=== PATIENT | male | born 1980 | race Hispanic/Latino ===

== ENCOUNTER 2022-08-31 15:22 | Emergency (ER) | payer SELFPAY ==
[2022-08-31 17:51] LABS: Absolute Lymphocytes (CBC) 3.1 K/uL (0.7-4.9); Hematocrit 51.6 % (39.6-49.0); Lymphocytes % 26.3 % (15.3-44.8); MPV 8.2 fL (7.6-11.3); Protime INR 1.13; RBC Red Blood Cell Count 5.67 M/uL (4.33-5.43)
[2022-08-31] MEDS ORDERED: FAMOTIDINE 20 MG/2 ML VIAL IV ONE (17:53)
[2022-08-31] MEDS ORDERED: NA CHLORIDE 0.9% 1,000 ML ONE (17:53)
[2022-08-31] MEDS ORDERED: ONDANSETRON 4 MG/2 ML VIAL ONE (17:53)
[2022-08-31] MEDS ORDERED: MAGNES/ALUMIN/SIMET 30ML UCUP ONE (18:14)
[2022-08-31 18:17] LABS: Specific Gravity 1.018 (1.005-1.030); Urine Bilirubin NEGATIVE (Negative); Urine Blood Negative (Negative); Urine Clarity Clear (Clear); Urine Color Light-Yellow (Yellow); Urine Glucose NEGATIVE (Negative); Urine Protein NEGATIVE (Negative); Urine Urobilinogen Normal (Normal); Urine pH 5.5 (5.0-7.0)
[2022-08-31 18:28] LABS: ALT/SGPT 39 U/L (16-61); AST/SGOT 19 U/L (15-37); Albumin 3.8 g/dL (3.4-5.0); Alkaline Phosphatase 175 U/L (45-117); BUN Blood Urea Nitrogen 10 mg/dL (7-18); Bicarbonate 24 mEq/L (21-32); Bilirubin Direct 0.3 mg/dL (0-0.2); Bilirubin Indirect, Calculated 0.8 mg/dL (0.2-0.8); Bilirubin Total 1.1 mg/dL (0.2-1.0); Glomerular Filtration Rate 91 ml/min (=/>90); Glucose Level 104 mg/dL (74-106); Lipase 53 U/L (13-75); Magnesium 2.2 mg/dL (1.6-2.4); NT PRO-BNP 24 pg/mL (<125); Potassium 3.6 mEq/L (3.5-5.1); Protein, Total 7.8 g/dL (6.4-8.2); Sodium Level 138 mEq/L (136-145)
[2022-08-31 18:29] LABS: Troponin High Sensitivity < 3.0 pg/mL (<58.9)
[2022-08-31] MEDS ORDERED: PANTOPRAZOLE 40 MG INJ ONE (18:58)
--- NOTE | 2022-08-31 19:00 | RAD REPORT ---
EXAM DESCRIPTION: Nicholas Single View08/31/2022 5:53 pm CLINICAL HISTORY: Abdominal pain COMPARISON: none FINDINGS: The lungs appear clear of acute infiltrate. The heart is normal size IMPRESSION: No acute abnormalities displayed
--- NOTE | 2022-08-31 19:03 | ER ---
Nurse's Notes [facility] Name: Josué Flores Jr Age: 42 yrs Sex: Male : 1980 Arrival Date: 08/31/2022 Time: 15:22 Bed 13 Private MD: Diagnosis: Dysphagia;Dysphagia, unspecified;Gastro-esophageal reflux disease with esophagitis Presentation: 08/31 15:36 Chief complaint: Patient states: "For the past 3-4 months, I've had heartburn and acid mb9 reflux real bad. The past few weeks when eat I fell like it gets stuck in my throat and feel pressure in my stomach and gas built up. Burping helps relieve that pressure. I have diarrhea and today feel lightheaded and nauseous". Coronavirus screen: At this time, the client does not indicate any symptoms associated with coronavirus-19. Ebola Screen: No symptoms or risks identified at this time. Initial Sepsis Screen: Does the patient meet any 2 criteria? No. Patient's initial sepsis screen is negative. Does the patient have a suspected source of infection? No. Patient's initial sepsis screen is negative. Risk Assessment: Do you want to hurt yourself or someone else? Patient reports no desire to harm self or others. Onset of symptoms was 2022. 15:36 Method Of Arrival: Ambulatory mb9 15:36 Acuity: HERBERTH 3 mb9 Triage Assessment: 15:39 General: Appears in no apparent distress. Behavior is calm, cooperative. Pain: mb9 Complains of pain in abdomen. EENT: No signs and/or symptoms were reported regarding the EENT system. Neuro: Enrique Agitation-Sedation Scale (RASS): 0 - Alert and Calm Level of Consciousness is awake, alert, obeys commands, Oriented to person, place, time, situation, Appropriate for age. Cardiovascular: Patient's skin is warm and dry. Respiratory: Airway is patent Respiratory effort is even, unlabored, Respiratory pattern is regular, symmetrical. GI: Abdomen is flat, non-distended, Bowel sounds present X 4 quads. Abd is soft and non tender X 4 quads. Reports diarrhea, nausea. : No signs and/or symptoms were reported regarding the genitourinary system. Derm: Skin is pink, warm \\T\\ dry. Musculoskeletal: Range of motion: intact in all extremities. Historical: - Allergies: 15:38 No Known Allergies; mb9 - Home Meds: 15:38 None [Active]; mb9 - PMHx: 15:38 None; mb9 - PSHx: 15:38 None; mb9 - Immunization history:: Adult Immunizations up to date. - Social history:: Smoking status: Patient/guardian denies using tobacco. Screenin:00 [facility] ED Fall Risk Assessment (Adult) History of falling in the last 3 months, db including since admission No falls in past 3 months (0 pts) Confusion or Disorientation No (0 pts) Intoxicated or Sedated No (0 pts) Impaired Gait No (0 pts) Mobility Assist Device Used No (0 pt) Altered Elimination No (0 pt) Score/Fall Risk Level 0 - 2 = Low Risk Oriented to surroundings, Maintained a safe environment. Abuse screen: Denies threats or abuse. Denies injuries from another. Nutritional screening: No deficits noted. Tuberculosis screening: No symptoms or risk factors identified. Assessment: 15:40 Reassessment: see triage assessment. 9 17:13 Reassessment: No changes from previously documented assessment. Patient and/or family ll1 updated on plan of care and expected duration. Pain level reassessed. 17:59 Reassessment: Patient appears in no apparent distress at this time. Patient and/or db family updated on plan of care and expected duration. Pain level reassessed. Patient is alert, oriented x 3, equal unlabored respirations, skin warm/dry/pink. General: Appears in no apparent distress. comfortable, Behavior is calm, cooperative. Pain: Complains of pain in EPIGASTRIC. Neuro: No deficits noted. Level of Consciousness is awake, alert, obeys commands, Oriented to person, place, time, situation. Respiratory: Airway is patent Respiratory effort is even, unlabored, Respiratory pattern is regular, symmetrical. 18:55 Reassessment: Patient appears in no apparent distress at this time. Patient and/or db family updated on plan of care and expected duration. Pain level reassessed. Patient is alert, oriented x 3, equal unlabored respirations, skin warm/dry/pink. Reassessment: Patient states feeling better. Patient states symptoms have improved. General: Appears in no apparent distress. comfortable, Behavior is calm, cooperative. Vital Signs: 15:36 BP 128 / 89; Pulse 89; Resp 18; Temp 97.8; Pulse Ox 100% on R/A; Weight 72.57 kg; mb9 Height 5 ft. 7 in. ; Pain 0/10; 17:49 BP 135 / 91; Pulse 72; Resp 16; Pulse Ox 100% on R/A; db 19:00 BP 127 / 80; Pulse 76; Resp 16; Pulse Ox 100% on R/A; db 15:36 Body Mass Index 25.06 (72.57 kg, 170.18 cm) mb9 15:36 Pain Scale: Adult mb9 ED Course: 15:25 Patient arrived in ED. am2 15:28 Cal Gallegos MD is Attending Physician. daniela 15:38 Triage completed. mb9 15:38 Arm band placed on. mb9 17:13 Patient placed in an exam room, on a stretcher. ll1 17:30 Joanie Valentino, YENI is Primary Nurse. db 17:40 Inserted saline lock: 20 gauge in right antecubital area, using aseptic technique. db Blood collected. 17:51 EKG done, by ED staff, reviewed by Cal Gallegos MD. em1 17:55 XRAY Chest (1 view) In Process Unspecified. EDMS 19:03 Namrata Malin MD is Referral Physician. daniela 19:24 Patient has correct armband on for positive identification. Provided Education on: db DISCHARGE. 19:24 No provider procedures requiring assistance completed. IV discontinued, intact, db bleeding controlled, No redness/swelling at site. Administered Medications: 17:50 Drug: NS 0.9% IV 1000 ml Route: IV; Rate: 1 bolus; Site: right antecubital; db 18:55 Follow up: Response: No adverse reaction; IV Status: Completed infusion; IV Intake: db 1000ml 17:50 Drug: Ondansetron IVP 8 mg Route: IVP; Site: right antecubital; db 19:25 Follow up: Response: No adverse reaction db 17:50 Drug: Famotidine IVP 20 mg Route: IVP; Site: right antecubital; db 19:25 Follow up: Response: No adverse reaction db 18:05 Drug: GI Cocktail without - (Maalox PO Suspension 30 ml, Lidocaine Mucous db Membrane Liquid 2 % 15 ml) Route: PO; 19:26 Follow up: Response: No adverse reaction db 19:07 Drug: Pantoprazole IVP 40 mg Route: IVP; Site: right antecubital; db 19:13 Follow up: Response: No adverse reaction db Medication: 19:24 VIS not applicable for this client. db Intake: 18:55 IV: 1000ml; Total: 1000ml. db Outcome: 19:03 Discharge ordered by . daniela 19:24 Discharged to home ambulatory, with family. db 19:24 Condition: stable 19:24 Discharge instructions given to patient, Instructed on discharge instructions, follow up and referral plans. Prescriptions given X 3. 19:26 Patient left the ED. db Signatures: Dispatcher [employer] EDMS Cal Gallegos MD MD cha Martinez, Eric em1 Lizbeth Prabhakar Lynsay, RN RN ll1 Joanie Valentino RN RN Agustina Morocho RN RN mb9
--- NOTE | 2022-08-31 19:03 | EDPHYS ---
Physician Documentation [facility] Name: Josué Flores Jr Age: 42 yrs Sex: Male : 1980 Arrival Date: 08/31/2022 Time: 15:22 Bed 13 Private MD: ED Physician Cal Gallegos HPI: 08/31 17:52 This 42 yrs old Male presents to ER via Ambulatory with complaints of daniela Abdominal Pain, Nausea, r/o obstruction. 17:52 The patient presents to the emergency department with nausea, that is mild. Onset: The daniela symptoms/episode began/occurred 3 month(s) ago. Possible causes: unknown. The symptoms are aggravated by food , The symptoms are alleviated by nothing. Associated signs and symptoms: The patient has no apparent associated signs or symptoms. Severity of symptoms: At their worst the symptoms were mild in the emergency department the symptoms are unchanged. Historical: - Allergies: 15:38 No Known Allergies; mb9 - Home Meds: 15:38 None [Active]; mb9 - PMHx: 15:38 None; mb9 - PSHx: 15:38 None; mb9 - Immunization history:: Adult Immunizations up to date. - Social history:: Smoking status: Patient/guardian denies using tobacco. ROS: 17:53 Constitutional: Negative for fever, chills, and weight loss, Eyes: Negative for injury, daniela pain, redness, and discharge, Neck: Negative for injury, pain, and swelling, Cardiovascular: Negative for chest pain, palpitations, and edema, Respiratory: Negative for shortness of breath, cough, wheezing, and pleuritic chest pain, Abdomen/GI: Negative for abdominal pain, nausea, vomiting, diarrhea, and constipation, Back: Negative for injury and pain, : Negative for injury, bleeding, discharge, and swelling, MS/Extremity: Negative for injury and deformity, Skin: Negative for injury, rash, and discoloration, Neuro: Negative for headache, weakness, numbness, tingling, and seizure, Psych: Negative for depression, anxiety, suicide ideation, homicidal ideation, and hallucinations, Allergy/Immunology: Negative for hives, rash, and allergies, Endocrine: Negative for neck swelling, polydipsia, polyuria, polyphagia, and marked weight changes, Hematologic/Lymphatic: Negative for swollen nodes, abnormal bleeding, and unusual bruising. 17:53 ENT: Positive for difficulty swallowing. Exam: 17:53 Constitutional: This is a well developed, well nourished patient who is awake, alert, daniela and in no acute distress. Head/Face: Normocephalic, atraumatic. Eyes: Pupils equal round and reactive to light, extra-ocular motions intact. Lids and lashes normal. Conjunctiva and sclera are non-icteric and not injected. Cornea within normal limits. Periorbital areas with no swelling, redness, or edema. ENT: Nares patent. No nasal discharge, no septal abnormalities noted. Tympanic membranes are normal and external auditory canals are clear. Oropharynx with no redness, swelling, or masses, exudates, or evidence of obstruction, uvula midline. Mucous membranes moist. Neck: Trachea midline, no thyromegaly or masses palpated, and no cervical lymphadenopathy. Supple, full range of motion without nuchal rigidity, or vertebral point tenderness. No Meningismus. Chest/axilla: Normal chest wall appearance and motion. Nontender with no deformity. No lesions are appreciated. Cardiovascular: Regular rate and rhythm with a normal S1 and S2. No gallops, murmurs, or rubs. Normal PMI, no JVD. No pulse deficits. Respiratory: Lungs have equal breath sounds bilaterally, clear to auscultation and percussion. No rales, rhonchi or wheezes noted. No increased work of breathing, no retractions or nasal flaring. Abdomen/GI: Soft, non-tender, with normal bowel sounds. No distension or tympany. No guarding or rebound. No evidence of tenderness throughout. Back: No spinal tenderness. No costovertebral tenderness. Full range of motion. Male : Normal genitalia with no discharge or lesions. Skin: Warm, dry with normal turgor. Normal color with no rashes, no lesions, and no evidence of cellulitis. MS/ Extremity: Pulses equal, no cyanosis. Neurovascular intact. Full, normal range of motion. Neuro: Awake and alert, GCS 15, oriented to person, place, time, and situation. Cranial nerves II-XII grossly intact. Motor strength 5/5 in all extremities. Sensory grossly intact. Cerebellar exam normal. Normal gait. Psych: Awake, alert, with orientation to person, place and time. Behavior, mood, and affect are within normal limits. 17:53 ECG was reviewed by the Attending Physician. Vital Signs: 15:36 BP 128 / 89; Pulse 89; Resp 18; Temp 97.8; Pulse Ox 100% on R/A; Weight 72.57 kg; mb9 Height 5 ft. 7 in. ; Pain 0/10; 17:49 BP 135 / 91; Pulse 72; Resp 16; Pulse Ox 100% on R/A; db 19:00 BP 127 / 80; Pulse 76; Resp 16; Pulse Ox 100% on R/A; db 15:36 Body Mass Index 25.06 (72.57 kg, 170.18 cm) mb9 15:36 Pain Scale: Adult mb9 MDM: 15:28 Patient medically screened. daniela 17:55 Differential diagnosis: Nonspecific abd pain, gastritis, gastritis, gastroesophageal daniela reflux disease, non-specific abd pain. Data reviewed: vital signs, nurses notes, lab test result(s), EKG, radiologic studies, plain films. Consideration of Admission/Observation Escalation of care including admission/observation considered. I considered the following discharge prescriptions or medication management in the emergency department Medications were administered in the Emergency Department. See MAR. Test considered but Not performed: CT: no ct abd/ pelvis. Historians other than the Patient: Spouse/Significant Other: , well informed. Care significantly affected by the following chronic conditions: gerd, hx of pyloric stenosis. Counseling: I had a detailed discussion with the patient and/or guardian regarding: the historical points, exam findings, and any diagnostic results supporting the discharge/admit diagnosis, the presence of at least one elevated blood pressure reading (>120/80) during this emergency department visit, lab results, radiology results, the need for outpatient follow up, for definitive care, a family practitioner, a information assurance officer. 08/31 15:30 Order name: Basic Metabolic Panel; Complete Time: 19:02 [facility] 08/31 15:30 Order name: CBC with Diff; Complete Time: 18:03 [facility] 08/31 15:30 Order name: LFT's; Complete Time: 19:02 08/31 15:30 Order name: Magnesium; Complete Time: 19:02 08/31 15:30 Order name: NT PRO-BNP; Complete Time: 19:02 08/31 15:30 Order name: PT-INR; Complete Time: 18:03 08/31 15:30 Order name: Troponin HS; Complete Time: 19:02 08/31 15:30 Order name: Lipase; Complete Time: 19:02 08/31 15:30 Order name: Urinalysis w/ reflexes; Complete Time: 19:02 08/31 15:30 Order name: XRAY Chest (1 view); Complete Time: 19:02 08/31 15:30 Order name: EKG; Complete Time: 17:10 08/31 15:30 Order name: Cardiac monitoring; Complete Time: 17:58 08/31 15:30 Order name: EKG - Nurse/Tech; Complete Time: 17:51 08/31 15:30 Order name: IV Saline Lock; Complete Time: 17:58 08/31 15:30 Order name: Labs collected and sent; Complete Time: 17:58 08/31 15:30 Order name: O2 Per Protocol; Complete Time: 17:58 08/31 15:30 Order name: O2 Sat Monitoring; Complete Time: 17:58 [facility] EC:53 Rate is 77 beats/min. Rhythm is regular. QRS Bruce is Normal. CO interval is normal. QRS daniela interval is normal. No Q waves. T waves are Normal. No ST changes noted. Clinical impression: Normal ECG and No evidence of ischemia. Interpreted by me. Reviewed by me. Administered Medications: 17:50 Drug: NS 0.9% IV 1000 ml Route: IV; Rate: 1 bolus; Site: right antecubital; db 18:55 Follow up: Response: No adverse reaction; IV Status: Completed infusion; IV Intake: db 1000ml 17:50 Drug: Ondansetron IVP 8 mg Route: IVP; Site: right antecubital; db 19:25 Follow up: Response: No adverse reaction db 17:50 Drug: Famotidine IVP 20 mg Route: IVP; Site: right antecubital; db 19:25 Follow up: Response: No adverse reaction db 18:05 Drug: GI Cocktail without - (Maalox PO Suspension 30 ml, Lidocaine Mucous db Membrane Liquid 2 % 15 ml) Route: PO; 19:26 Follow up: Response: No adverse reaction db 19:07 Drug: Pantoprazole IVP 40 mg Route: IVP; Site: right antecubital; db 19:13 Follow up: Response: No adverse reaction db Disposition Summary: 08/31/22 19:03 Discharge Ordered Location: Home daniela Problem: new daniela Symptoms: have improved daniela Condition: Stable daniela Diagnosis - Dysphagia daniela - Dysphagia, unspecified daniela - Gastro-esophageal reflux disease with esophagitis daniela Followup: daniela - With: Private Physician - When: 2 - 3 days - Reason: Recheck today's complaints, Continuance of care, Re-evaluation by your physician Followup: daniela - With: - When: 2 - 3 days - Reason: Recheck today's complaints, Re-evaluation by your physician Discharge Instructions: - Discharge Summary Sheet daniela - Food Choices for Gastroesophageal Reflux Disease, Adult daniela - Dysphagia daniela - Esophagitis daniela - Gastroesophageal Reflux Disease, Adult daniela - Gastroesophageal Reflux Disease, Adult, [id number] daniela - Food Choices for Gastroesophageal Reflux Disease, Adult, [id number] Forms: - Medication Reconciliation Form daniela - Thank You Letter daniela - Antibiotic Education daniela - Prescription Opioid Use daniela - Patient Portal Instructions daniela - Work release form db Prescriptions: - ondansetron 4 mg Oral Tablet,disintegrating - take 1 tablet by ORAL route every 6-8 hours for 48 hours; 24 tablet; Refills: daniela 0, Product Selection Permitted - Protonix 40 mg Oral Tablet - take 1 tablet by ORAL route once daily; 30 tablet; Refills: 0, Product daniela Selection Permitted - dicyclomine 10 mg/5 mL Oral Solution - take 10 milliliters by ORAL route 4 times per day; 200 milliliter; Refills: 0, daniela Product Selection Permitted Signatures: Dispatcher [employer] EDCal Haney MD MD cha Benton, Danielle RN RN Agustina Morocho RN RN mb9 Corrections: (The following items were deleted from the chart) 17:18 17:10 Abdomen Pelvis W Con+[id number].BRZ ordered. EDMS EDMS 18:01 16:47 Abdomen ordered. EDMS EDMS
[2022-08-31 22:54] VITALS: TEMP 97.8; O2SAT 100
[2022-08-31 22:58] VITALS: BP 127/80
--- NOTE | 2022-09-01 20:40 | EKG ---
Test Date: 2022-08-31 Test Time: 17:44:10 Clinical Auditor: PAYTON MEASUREMENT RESULTS: Intervals: Rate: 77 VA: 156 QRSD: 84 QT: 358 QTc: 405 [place]: P: 55 VA: 156 QRS: 70 T: 64 INTERPRETIVE STATEMENTS: Normal sinus rhythm Normal ECG No previous ECG available for comparison Electronically Signed On 09-01-22 20:37:46 CDT by Tony Serra
== END 2022-08-31 19:26 | disposition home or self-care (01) ==
LOC: ER 15:22
DX: R13.10 Dysphagia, unspecified (principal); K21.00 Gastro-esophageal reflux disease with esophagitis, without bleeding
CPT/HCPCS: 36415; 71045; 80048; 80076; 81003; 83690; 83735; 83880; 84484; 85025; 85610; 93005; 96361; 96374; 96375; 99284; C9113; J2405; J7030

== ENCOUNTER 2022-10-04 16:13 | Emergency (ER) | payer SELFPAY ==
--- NOTE | 2022-10-04 17:33 | RAD REPORT ---
EXAM DESCRIPTION: CT - Head Brain Wo Cont - 10/04/2022 5:24 pm CLINICAL HISTORY: HEADACHE COMPARISON: No comparisons TECHNIQUE: All CT scans are performed using dose optimization technique as appropriate and may inclu de automated exposure control or mA/KV adjustment according to patient size. FINDINGS: No intracranial hemorrhage, hydrocephalus or extra-axial fluid collection.No areas of brai n edema or evidence of midline shift. Circumferential thickening in left maxillary sinus. Trace right maxillary sinus thickening The calvar ium is intact. IMPRESSION: No acute intracranial abnormality.
[2022-10-04] MEDS ORDERED: ACETAMINOPHEN 500 MG TAB ONE (20:09)
[2022-10-04 20:15] LABS: Absolute Lymphocytes (CBC) 2.8 K/uL (0.7-4.9); Lymphocytes % 33.7 % (15.3-44.8); MCV 91.5 fL (80-100); MPV 8.1 fL (7.6-11.3); Platelets 339 thou/uL (152-406); RBC Red Blood Cell Count 5.35 M/uL (4.33-5.43)
[2022-10-04 20:28] LABS: Potassium 3.9 mEq/L (3.5-5.1)
--- NOTE | 2022-10-04 20:52 | EDPHYS ---
Physician Documentation [facility] Name: Josué Flores Jr Age: 42 yrs Sex: Male : 1980 Arrival Date: 10/04/2022 Time: 16:13 Bed 19 Private MD: ED Physician Brice Caraballo HPI: 10/04 17:30 This 42 yrs old Male presents to ER via Ambulatory with complaints of Headache.cp 17:30 The patient complains of pain to the left frontal area, left side of forehead and left cp temporal area. The patient describes the headache as aching, waxing and waning. 17:30 Onset: The symptoms/episode began/occurred 4 day(s) ago. cp 17:30 Associated signs and symptoms: Pertinent positives: dizziness, radiating pain to left cp eye, Pertinent negatives: altered mental status, fever, neck stiffness, Photophobia sinus congestion, sinus tenderness, vision changes, vision loss, vomiting, weakness. 17:30 Severity of symptoms: in the emergency department the pain has improved, mildly. cp Headache History: Denies prior headaches. 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 - Social history:: Smoking status: Patient/guardian denies using tobacco, Stopped _ months ago 8. ROS: 17:33 Constitutional: Negative for body aches, chills, fever, poor PO intake. cp 17:33 Neuro: Positive for headache. cp 17:33 Eyes: Negative for discharge, redness, vision loss, visual disturbance. cp 17:33 ENT: Negative for drainage from ear(s), ear pain, sore throat, difficulty swallowing, difficulty handling secretions. 17:33 Neck: Negative for pain with movement, pain at rest, stiffness. 17:33 Cardiovascular: Negative for chest pain, edema, palpitations. 17:33 Respiratory: Negative for cough, shortness of breath, wheezing. 17:33 Abdomen/GI: Negative for abdominal pain, nausea, vomiting, and diarrhea. 17:33 Skin: Negative for cellulitis, rash. 17:33 All other systems are negative. cp Exam: 17:35 Constitutional: The patient appears in no acute distress, alert, awake, cp non-diaphoretic, non-toxic, well developed, well nourished, anxious. 17:35 Head/Face: Normocephalic, atraumatic. cp 17:35 Eyes: Periorbital structures: appear normal, Pupils: equal, round, and reactive to light and accomodation, Extraocular movements: intact throughout, Conjunctiva: normal, no exudate, no injection, Sclera: no appreciated abnormality, Lids and lashes: appear normal, bilaterally. 17:35 ENT: External ear(s): are unremarkable, Ear canal(s): are normal, clear, TM's: dullness, bilaterally, Nose: is normal, Mouth: Lips: moist, Oral mucosa: pink and intact, moist, Posterior pharynx: is normal, airway is patent, no erythema, no exudate. 17:35 Neck: ROM/movement: is normal, is supple, without pain, no range of motions limitations, no meningismus, no nuchal rigidity. 17:35 Chest/axilla: Inspection: normal. 17:35 Cardiovascular: Rate: normal, Rhythm: regular, Edema: is not appreciated, JVD: is not cp appreciated. 17:35 Respiratory: the patient does not display signs of respiratory distress, Respirations: cp normal, no use of accessory muscles, no retractions, labored breathing, is not present, Breath sounds: are clear throughout, no decreased breath sounds, no stridor, no wheezing. 17:35 Abdomen/GI: Exam negative for discomfort, distension, guarding, Inspection: abdomen appears normal. 17:35 Back: pain, is absent, ROM is normal. 17:35 Skin: cellulitis, is not appreciated, no rash present. 17:35 Neuro: Orientation: to person, place \T\ time. Mentation: is normal, Cerebellar function: is grossly normal, Motor: moves all fours, strength is normal, Sensation: is normal. Vital Signs: 16:37 BP 140 / 92; Pulse 73; Resp 16; Temp 98.7(R); Pulse Ox 100% on R/A; Weight 61.23 kg; hb Height 5 ft. 6 in. ; Pain 4/10; 19:55 BP 134 / 93; Pulse 70; Resp 18 S; Pulse Ox 100% on R/A; ha1 16:37 Body Mass Index 21.79 (61.23 kg, 167.64 cm) hb 16:37 Pain Scale: Adult hb MDM: 16:58 Patient medically screened. cp 20:50 Data reviewed: vital signs, nurses notes, lab test result(s), radiologic studies, CT cp scan. 20:50 Differential diagnosis: cluster headache, intracerebral hemorrhage, migraine, neoplasm, cp subarachnoid bleed, subdural hematoma, temporal arteritis, tension headache. I considered the following discharge prescriptions or medication management in the emergency department Medications were administered in the Emergency Department. See MAR. Counseling: I had a detailed discussion with the patient and/or guardian regarding the historical points, exam findings, and any diagnostic results supporting the discharge/admit diagnosis, lab results, radiology results, the need for outpatient follow up, a family practitioner, to return to the emergency department if symptoms worsen or persist or if there are any questions or concerns that arise at home. Response to treatment: the patient's symptoms have mildly improved after treatment, and as a result, I will discharge patient. 10/04 17:09 Order name: CBC with Diff; Complete Time: 20:46 cp 10/04 17:09 Order name: BMP; Complete Time: 20:46 cp 10/04 17:09 Order name: CT Head Brain wo Cont; Complete Time: 17:45 cp 10/04 17:45 Interpretation: Report reviewed. cp 10/04 17:09 Order name: IV Saline Lock; Complete Time: 20:22 cp 10/04 17:09 Order name: Labs collected and sent; Complete Time: 20:22 cp Administered Medications: 20:02 Drug: Acetaminophen PO 1000 mg Route: PO; ha1 21:01 Follow up: Response: No adverse reaction ha1 Disposition Summary: 10/04/22 20:51 Discharge Ordered Location: Home cp Problem: new cp Symptoms: have improved cp Condition: Stable cp Diagnosis - Headache cp Followup: cp - With: Melvin Montaño MD - When: 2 - 3 days - Reason: Recheck today's complaints Discharge Instructions: - Discharge Summary Sheet cp - General Headache Without Cause cp Forms: - Medication Reconciliation Form cp - Thank You Letter cp - Antibiotic Education cp - Prescription Opioid Use cp - Patient Portal Instructions cp - Leadership Thank You Letter cp Prescriptions: - Naprosyn 500 mg Oral Tablet - take 1 tablet by ORAL route 2 times per day take with food; 30 tablet; Refills: cp 0, Product Selection Permitted - Zofran 4 mg Oral Tablet - take 1 tablet by ORAL route every 12 hours As needed; 20 tablet; Refills: 0, cp Product Selection Permitted Signatures: Dispatcher [employer] Cal Bello PA PA cp Baxter, Heather, RN RN hb Mily Johnson RN RN ha1
--- NOTE | 2022-10-04 20:52 | ER ---
Nurse's Notes [facility] Name: Josué Flores Jr Age: 42 yrs Sex: Male : 1980 Arrival Date: 10/04/2022 Time: 16:13 Bed 19 Private MD: Diagnosis: Headache Presentation: 10/04 16:37 Chief complaint: Intermittent left sided headache that radiates to left eye and hb dizziness x 4 days. Denies N/V/photophobia. On amoxicillin, clarithromycin, and protonix day [address] infection [address] Dr. Beltre. Coronavirus screen: At this time, the client does not indicate any symptoms associated with coronavirus-19. Ebola Screen: No symptoms or risks identified at this time. Initial Sepsis Screen: Does the patient meet any 2 criteria? No. Patient's initial sepsis screen is negative. Does the patient have a suspected source of infection? No. Patient's initial sepsis screen is negative. Risk Assessment: Do you want to hurt yourself or someone else? Patient reports no desire to harm self or others. Onset of symptoms was September 30, 2022. 16:37 Method Of Arrival: Ambulatory hb 16:37 Acuity: HERBERTH 3 hb Triage Assessment: 20:15 Pain: Also complains of nausea. ha1 20:15 Headache History: The patient has had previous headaches. General: Appears comfortable, ha1 Behavior is calm, cooperative. Pain: Complains of pain in headache. 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 - Social history:: Smoking status: Patient/guardian denies using tobacco, Stopped _ months ago 8. Screenin:55 Abuse screen: Denies threats or abuse. Denies injuries from another. Nutritional ha1 screening: No deficits noted. Tuberculosis screening: No symptoms or risk factors identified. Assessment: 19:55 General: Appears comfortable, Behavior is calm, cooperative. Pain: Complains of pain in ha1 headache Pain does not radiate. Pain currently is 7 out of 10 on a pain scale. Quality of pain is described as pressure. Neuro: Level of Consciousness is awake, alert, obeys commands, Oriented to person, place, time, situation. Cardiovascular: Capillary refill < 3 seconds Patient's skin is warm and dry. Respiratory: Airway is patent Respiratory effort is even, unlabored, Respiratory pattern is regular, symmetrical. GI: No signs and/or symptoms were reported involving the gastrointestinal system. Musculoskeletal: Circulation, motion, and sensation intact. Range of motion: intact in all extremities. Vital Signs: 16:37 BP 140 / 92; Pulse 73; Resp 16; Temp 98.7(R); Pulse Ox 100% on R/A; Weight 61.23 kg; hb Height 5 ft. 6 in. ; Pain 4/10; 19:55 BP 134 / 93; Pulse 70; Resp 18 S; Pulse Ox 100% on R/A; ha1 16:37 Body Mass Index 21.79 (61.23 kg, 167.64 cm) hb 16:37 Pain Scale: Adult hb ED Course: 16:16 Patient arrived in ED. mr 16:39 Triage completed. hb 16:41 Arm band placed on. hb 16:55 Cal Gomez PA is PHCP. cp 16:55 Brice Caraballo MD is Attending Physician. cp 17:26 CT Head Brain wo Cont In Process Unspecified. EDMS 19:58 Patient has correct armband on for positive identification. Placed in gown. Bed in low ha1 position. Call light in reach. Side rails up X 1. 20:01 Mily Johnson, RN is Primary Nurse. ha1 20:21 Inserted saline lock: 20 gauge in right antecubital area, using aseptic technique. sm8 Blood collected. 20:51 Melvin Montaño MD is Referral Physician. cp 21:01 No provider procedures requiring assistance completed. IV discontinued, intact, ha1 bleeding controlled, No redness/swelling at site. Pressure dressing applied. 21:05 Provided Education on: follow ups and medication administration . ha1 Administered Medications: 20:02 Drug: Acetaminophen PO 1000 mg Route: PO; ha1 21:01 Follow up: Response: No adverse reaction ha1 Medication: 21:05 VIS not applicable for this client. ha1 Outcome: 20:51 Discharge ordered by . cp 21:01 Discharged to home ambulatory. ha1 21:01 Condition: stable 21:01 Discharge instructions given to patient, Instructed on discharge instructions, follow up and referral plans. medication usage, Demonstrated understanding of instructions, follow-up care, medications, Prescriptions given X 2. 21:05 Patient left the ED. ha1 Signatures: Dispatcher [employer] EDMS Agustina Lawson mr Cal Gomez PA PA cp Baxter, Heather, RN RN hb Mily Johnson RN RN ha1 rCista Morocho 8 Corrections: (The following items were deleted from the chart) 16:43 16:37 Chief complaint: Intermittent left sided headache that radiates to left eye and hb dizziness x 4 days. Denies N/V/photophobia hb
[2022-10-04 22:08] VITALS: O2SAT 100
[2022-10-04 22:10] VITALS: BP 140/92; TEMP 98.7
== END 2022-10-04 21:05 | disposition home or self-care (01) ==
LOC: ER 16:13
DX: R51.9 Headache, unspecified (principal)
CPT/HCPCS: 36415; 70450; 80048; 85025; 99284